=== PATIENT | male | born 1950 | race Caucasian/White ===

== ENCOUNTER 2020-10-16 14:09 | Emergency (ER) | payer MEDICARE ==
[2020-10-16] MEDS ORDERED: CYCLOBENZAPRINE10 MG PO (15:33)
== END 2020-10-16 16:01 | disposition home or self-care (01) ==
LOC: FER 14:09
DX: S01.01XA Laceration without foreign body of scalp, initial encounter (principal); S50.811A Abrasion of right forearm, initial encounter; E11.9 Type 2 diabetes mellitus without complications; I10 Essential (primary) hypertension; F17.210 Nicotine dependence, cigarettes, uncomplicated; V48.5XXA Car driver injured in noncollision transport accident in traffic accident, initial encounter; Y92.410 Unspecified street and highway as the place of occurrence of the external cause
CPT/HCPCS: 70450; 72125